=== PATIENT | male | born 1965 | race Asian ===

== ENCOUNTER → 2022-09-10 | Emergency (ER) | payer MEDICAID ==
--- NOTE | 2022-09-10 13:08 | NUR ---
PT [id number]. ELOPED FROM AUDIO VIDEO MECHANIC [facility]. NOT TRIAGED
== END | disposition left against medical advice (07) ==
LOC: ER 12:52
DX: Z53.21 Procedure and treatment not carried out due to patient leaving prior to being seen by health care provider (principal)